=== PATIENT | female | born 1995 | race Caucasian/White ===

== ENCOUNTER 2022-05-08 20:01 | Emergency (ER) | payer OTHER, SELFPAY ==
[2022-05-08 20:09] VITALS: BP 134/97; PULSE 78; RESP 18; TEMP 37.2; O2SAT 99
[2022-05-08] MEDS: ACETAMINOPHEN 500 MG TABLET 1000 MG PO (20:56)
[2022-05-08] MEDS: IBUPROFEN 400 MG TABLET 800 MG PO (20:56)
[2022-05-08] MEDS: methocarbamoL 750 MG TABLET 1500 MG PO (20:56)
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
[2022-05-08 21:20] VITALS: BP 129/81; PULSE 71; RESP 18; O2SAT 99
== END 2022-05-08 21:20 | disposition home or self-care (01) ==
PROVIDERS: Emergency Provider Emergency Medicine; PCP Family Medicine
DX: M54.2 Cervicalgia (principal); V49.88XA Car occupant (driver) (passenger) injured in other specified transport accidents, initial encounter
CPT/HCPCS: 99283; A9270